=== PATIENT | male | born 1970 | race American Indian/Alaskan Native ===

== ENCOUNTER 2017-12-02 02:10 | Emergency (ER) | payer OTHER ==
[2017-12-02 02:30] VITALS: BP 124/60
--- NOTE | 2017-12-02 03:26 | Emergency Department Report ---
ED General Adult HPI - General Chief complaint: Dyspnea/Respdistress Stated complaint: ASTHMA Time Seen by Provider: 12/02/17 03:15 Source: patient, RN notes reviewed Mode of arrival: Ambulatory Limitations: No Limitations - History of Present Illness Initial comments: This is a 47-year-old male who was previously unknown to this provider, has a past medical history of asthma, presents to the ER with shortness of breath, cough, mucus production. He is not wheezing. There is no leg pain, there is no leg swelling, there is no chest pain, there is no diaphoresis, there are no pulmonary embolus or DVT risk factors. The patient indicates he recently got over a "cold", and since then has been experiencing nasal congestion. He also requests a refill on his albuterol inhaler. His symptoms are constant, they have no exacerbating or relieving factors. It did not radiate anywhere. -: Gradual Location: face Radiation: non-radiation Consistency: constant Improves with: none Worsens with: none Associated Symptoms: cough, shortness of breath. denies: confusion, chest pain , diaphoresis, fever/chills, headaches, loss of appetite, malaise, nausea/ vomiting, rash, syncope, weakness - Related Data Previous Rx's Medication Instructions Recorded Last Taken Type Albuterol Sulfate [Albuterol 0.63% 0.63 mg IH Q4HR PRN #2 ml 12/02/17 Unknown Rx NEBS] Albuterol Sulfate [Proair 90 mcg IH Q4HR PRN #2 [email or web address] 12/02/17 Unknown Rx Respiclick] Benzonatate [Tessalon Perles] 100 mg PO Q8HR PRN #30 capsule 12/02/17 Unknown Rx Fluticasone [Flonase] 1 spray NS QDAY #1 bottle 12/02/17 Unknown Rx Allergies Allergy/AdvReac Type Severity Reaction Status Date / Time Penicillins Allergy Unknown Verified 12/02/17 02:36 ED Review of Systems ROS: Stated complaint: ASTHMA Other details as noted in HPI ED Past Medical Hx - Past Medical History Previous Medical History?: Yes Hx Asthma: Yes - Surgical History Past Surgical History?: Yes Additional Surgical History: hernia - Social History Smoking Status: Current Every Day Smoker Substance Use Type: Marijuana - Medications Home Medications: Home Medications Medication Instructions Recorded Confirmed Last Taken Type Albuterol Sulfate [Albuterol 0.63% 0.63 mg IH Q4HR PRN #2 ml 12/02/17 Unknown Rx NEBS] Albuterol Sulfate [Proair 90 mcg IH Q4HR PRN #2 aer.[email or web address] 12/02/17 Unknown Rx Respiclick] Benzonatate [Tessalon Perles] 100 mg PO Q8HR PRN #30 capsule 12/02/17 Unknown Rx Fluticasone [Flonase] 1 spray NS QDAY #1 bottle 12/02/17 Unknown Rx ED Physical Exam - General Limitations: No Limitations General appearance: alert, in no apparent distress - Head Head exam: Present: atraumatic, normocephalic - Eye Eye exam: Present: normal appearance, EOMI. Absent: nystagmus - ENT ENT exam: Present: normal exam, normal orophraynx, mucous membranes moist, normal external ear exam - Neck Neck exam: Present: normal inspection, full ROM. Absent: tenderness, meningismus - Respiratory Respiratory exam: Present: normal lung sounds bilaterally. Absent: respiratory distress - Cardiovascular Cardiovascular Exam: Present: regular rate, normal rhythm, normal heart sounds. Absent: systolic murmur, diastolic murmur, rubs, gallop - GI/Abdominal GI/Abdominal exam: Present: soft, normal bowel sounds. Absent: distended, tenderness, guarding, rebound, rigid, pulsatile mass - Rectal Rectal exam: Present: deferred - Extremities Exam Extremities exam: Present: normal inspection, full ROM. Absent: pedal edema, joint swelling, calf tenderness - Back Exam Back exam: Present: normal inspection, full ROM. Absent: tenderness, CVA tenderness (R), paraspinal tenderness, vertebral tenderness - Neurological Exam Neurological exam: Present: alert, oriented X3, CN II-XII intact, normal gait, other (Extraocular movements intact. Tongue midline. No facial droop. Facial sensation intact to light touch in the V1, V2, V3 distribution bilaterally. 5 and 5 strength in 4 extremities.. Sensation is intact to light touch in 4 extremities.) - Psychiatric Psychiatric exam: Present: normal affect, normal mood - Skin Skin exam: Present: warm, dry, intact, normal color. Absent: rash ED Course Vital Signs 12/02/17 12/02/17 02:24 02:32 Temperature 98.1 F 98.1 F Pulse Rate 63 65 Respiratory 18 18 Rate Blood Pressure 124/60 124/60 O2 Sat by Pulse 98 98 Oximetry ED Medical Decision Making - Lab Data Vital Signs 12/02/17 12/02/17 02:24 02:32 Temperature 98.1 F 98.1 F Pulse Rate 63 65 Respiratory 18 18 Rate Blood Pressure 124/60 124/60 O2 Sat by Pulse 98 98 Oximetry - Medical Decision Making Differential diagnosis, including but not limited to: Bronchitis, viral syndrome , asthma, nasal congestion Assessment and plan: 47-year-old male with shortness of breath, nasal congestion , cough and a recent cold/viral illness. He is afebrile with reassuring vital signs, saturating well, has no pulmonary embolus or DVT risk factors, he is low risk by well's criteria, and he perc negative. There is no active wheezing, he is nasal congestion noted, and when I walk into the room to examine the patient he is planning on assailant phone in no distress. There does not appear to be an emergent condition at this time, based on his history and physical exam, I don't believe the patient requires x-ray imaging or laboratory studies. Critical care attestation.: If time is entered above; I have spent that time in minutes in the direct care of this critically ill patient, excluding procedure time. ED Disposition Clinical Impression: Upper respiratory tract infection Disposition: [id number] TO HOME OR SELFCARE Is pt being admited?: No Does the pt Need Aspirin: No Condition: Stable Instructions: Acute Bronchitis (ED) Additional Instructions: Take the medications as needed/directed. Follow-up with primary care doctor or pulmonary doctor within the next month. Return to the ER right away with fevers , chills, lethargy, irritability, projectile vomiting, change in mental status, confusion, inability to tolerate liquid feeds. Referrals: JEREMY ARAIZA MD [Staff Physician] - 3-5 Days COURTNEY SHABAZZ MD [Staff Physician] - 3-5 Days
== END 2017-12-02 03:30 | disposition home or self-care (01) ==
LOC: ED 02:10
DX: J06.9 Acute upper respiratory infection, unspecified (principal); J45.909 Unspecified asthma, uncomplicated; F17.200 Nicotine dependence, unspecified, uncomplicated
CPT/HCPCS: 99281